=== PATIENT | male | born 1970 | race Native Hawaiian/Other Pacific Islander ===

== ENCOUNTER 2020-11-20 15:07 | Outpatient (CLI) | payer BC | END 2020-11-20 21:37 | disposition home or self-care (01) | LOC: RAD 15:07 → MRI 15:07 → RAD 21:37 | PROVIDERS: ATTEND Physician Assistant Medical | DX: M54.16 Radiculopathy, lumbar region (principal) ==

== ENCOUNTER 2020-11-21 15:22 | Outpatient (CLI) | payer BC | END 2020-11-21 22:30 | disposition home or self-care (01) | LOC: MRI 15:22 | PROVIDERS: ATTEND Physician Assistant Medical | DX: M54.16 Radiculopathy, lumbar region (principal) ==